=== PATIENT | male | born 1970 | race Caucasian/White ===

== ENCOUNTER → 2018-04-07 | Outpatient (CLI) | payer BC ==
--- NOTE | 2018-04-07 09:35 | US ---
EXAMINATION TYPE: US abdomen complete DATE OF EXAM: 04/07/2018 COMPARISON: NONE CLINICAL HISTORY: 47-year-old male R10.11 right upper quadrant pain. Pain for 1 month TECHNIQUE: Multiple sonographic images of the abdomen are obtained. FINDINGS: EXAM MEASUREMENTS: Liver Length: 18.7 cm Gallbladder Wall: 0.2 cm CBD: 0.5 cm Spleen: 12.1 cm Right Kidney: 12.1 x 5.0 x 5.1 cm Left Kidney: 12.2 x 5.3 x 5.5 cm Pancreas: overlying bowel gas, not seen Liver: Limited intercostal imaging due to bowel gas . Slight increased echogenicity. No focal lesion seen. Gallbladder: Upper limits of normal in size likely due to fasting state. Evidence for sonographic Rojas's sign: no CBD: wnl Spleen: wnl Right Kidney: wnl Left Kidney: wnl Upper IVC: wnl Abd Aorta: very limited views due to bowel gas IMPRESSION: 1. Mild hepatomegaly (18.7 cm) with slight increased echogenicity. Correlate for hepatic steatosis. 2. Gallbladder is borderline hydropic likely due to fasting state. Sonographic Rojas sign is negativ e and there are no ancillary findings of acute cholecystitis. 3. No biliary ductal dilatation.
== END | disposition home or self-care (01) ==
LOC: RADUSWWP 06:46
PROVIDERS: ATTEND Internal Medicine
DX: R16.0 Hepatomegaly, not elsewhere classified (principal); R10.11 Right upper quadrant pain
CPT/HCPCS: 76700

== ENCOUNTER 2020-12-08 05:13 | Observation (INO) | payer BC ==
--- NOTE | 2020-12-08 05:49 | XR ---
EXAMINATION TYPE: XR chest 2V DATE OF EXAM: 12/08/2020 COMPARISON: NONE HISTORY: Chest pain TECHNIQUE: FINDINGS: Heart and mediastinum are normal. Lungs are clear. Diaphragm is normal. Bony thorax is inta ct. IMPRESSION: Normal chest.
[2020-12-08 06:03] LABS: Basophils # (A) 0.1 k/uL (0-0.2); Basophils % (A) 1 %; Eosinophils # (A) 0.2 k/uL (0-0.7); Eosinophils % (A) 3 %; HCT 45.6 % (39.0-53.0); HGB 15.5 gm/dL (13.0-17.5); Lymphocytes # (A) 2.4 k/uL (1.0-4.8); Lymphocytes % (A) 31 %; MCH 27.6 pg (25.0-35.0); MCHC 33.9 g/dL (31.0-37.0); MCV 81.5 fL (80.0-100.0); Mean Platelet Volume 8.3; Monocytes # (A) 0.5 k/uL (0-1.0); Monocytes % (A) 7 %; Neutrophils # (A) 4.4 k/uL (1.3-7.7); Neutrophils % (A) 56 %; Platelet Count 289 k/uL (150-450); RDW 12.9 % (11.5-15.5); WBC 7.9 k/uL (3.8-10.6)
[2020-12-08] MEDS ORDERED: ASPIRIN 81 MG PO STA (06:23)
--- NOTE | 2020-12-08 06:25 | ED ---
Chest Pain HPI - General Chief Complaint: Chest Pain Stated Complaint: Chest Pains Time Seen by Provider: 12/08/20 06:03 Source: patient, EMS, RN notes reviewed Mode of arrival: EMS Limitations: no limitations - History of Present Illness Initial Comments: This a 50-year-old male presents emergency Department with chief complaint of chest pain. Patient states that he woke up around 3:30 this morning. Patient states never experienced something like this in the Past. He has minimal shortness of breath no fever cough congestion. Patient states he is known diabetic no prior cardiac disease. Denies hypertension hyperlipidemia. She states pain has subsided some but still present. No abdominal pain. - Related Data Allergies Allergy/AdvReac Type Severity Reaction Status Date / Time tramadol [From [facility]] Allergy Anaphylaxis Verified 12/08/20 05:36 Review of Systems ROS Statement: Those systems with pertinent positive or pertinent negative responses have been documented in the HPI. ROS Other: All systems not noted in ROS Statement are negative. EKG Findings - EKG Comments: EKG Findings:: EKG performed at 5.4 normal sinus rhythm rate of 81 MT interval 152 QRS 86 QT/QTC 348/404 Past Medical History Past Medical History: Diabetes Mellitus History of Any Multi-Drug Resistant Organisms: None Reported Past Surgical History: No Surgical Hx Reported Past Psychological History: No Psychological Hx Reported Smoking Status: Former smoker Past Alcohol Use History: Occasional Past Drug Use History: None Reported General Exam Limitations: no limitations General appearance: alert, in no apparent distress Head exam: Present: atraumatic, normocephalic, normal inspection Eye exam: Present: normal appearance, PERRL, EOMI. Absent: scleral icterus, conjunctival injection, periorbital swelling ENT exam: Present: normal exam, normal oropharynx, mucous membranes moist Neck exam: Present: normal inspection, full ROM. Absent: tenderness, meningismus, lymphadenopathy Respiratory exam: Present: normal lung sounds bilaterally, chest wall tenderness. Absent: respiratory distress, wheezes, rales, rhonchi, stridor Cardiovascular Exam: Present: regular rate, normal rhythm, normal heart sounds. Absent: systolic murmur, diastolic murmur, rubs, gallop, clicks GI/Abdominal exam: Present: soft, normal bowel sounds. Absent: distended, te nderness, guarding, rebound, rigid Course Vital Signs 12/08/20 12/08/20 12/08/20 05:17 06:02 07:39 Temperature 97.9 F Pulse Rate 88 76 78 Respiratory 17 20 18 Rate Blood Pressure 150/95 112/72 111/82 O2 Sat by Pulse 98 98 98 Oximetry Chest Pain MDM - MDM Initial workup is negative including negative troponin, EKG does not show any acute changes. Patient does have multiple risk factors including admitted for cardiac rule out repeat troponins, started on heparin. Disposition Clinical Impression: Chest pain Disposition: ADMITTED IP TO THIS HOSP Condition: Fair Referrals: Marco Antonio Pete MD [Primary Care Provider] - 1-2 days
[2020-12-08 06:41] LABS: Partial Thromboplastin Time 25.7 sec (22.0-30.0); Prothrombin Time 10.6 sec (9.0-12.0)
[2020-12-08 06:44] LABS: ALT 23 U/L (4-49); AST 30 U/L (17-59); African American GFR (CKD) >90 (>60 ml/min/1.73 sqM); Albumin 4.6 g/dL (3.5-5.0); Alkaline Phosphatase 79 U/L (38-126); Anion Gap 10 mmol/L; Blood Urea Nitrogen 16 mg/dL (9-20); Calcium 10.2 mg/dL (8.4-10.2); Carbon Dioxide 24 mmol/L (22-30); Chloride 102 mmol/L (98-107); Glucose 274 mg/dL (74-99); Magnesium 1.7 mg/dL (1.6-2.3); Non-African American GFR(CKD) >90 (>60 ml/min/1.73 sqM); Potassium 4.7 mmol/L (3.5-5.1); Sodium 136 mmol/L (137-145); Total Bilirubin 0.6 mg/dL (0.2-1.3); Total Protein 7.7 g/dL (6.3-8.2)
[2020-12-08 07:40] VITALS: RESP 18
[2020-12-08] MEDS ORDERED: NITROGLYCERIN SL TABS 0.4 MG TAB SUBLINGUAL PRN (08:02)
[2020-12-08] MEDS ORDERED: HEPARIN SODIUM 1,000 UN/ML (10ML VL) IV ONE (08:02)
[2020-12-08] MEDS ORDERED: HEPARIN SOD,PORK IN 0.45% NACL 25,000 UNIT in 0.45% NACL 1 250ML.BAG IV SCH (08:15)
[2020-12-08] MEDS ORDERED: ASPIRIN 81 MG PO SCH (09:45)
--- NOTE | 2020-12-08 10:35 | P.CRDCN ---
History of Present Illness History of present illness: HISTORY OF PRESENTING ILLNESS This is a pleasant 50-year-old male past medical history significant for type 2 diabetes. He does not follow with a hospital product specialist. He follows with his primary care physician Dr. Pete. We have been asked to see in consultation for chest pain. Patient is seen and examined in the emergency department. 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 Patient's chest pain started at 3 AM. He states it started in the center of his chest and radiates to his back. He describes it as a sharp pain at first and then his chest began to feel "heavy". He had some associated shortness of breath. He denies any associated nausea, vomiting, diaphoresis. He denies any fever, chills, lightheadedness, dizziness, presyncope or syncope. He denies symptoms of orthopnea or PND. His chest pain has resolved. He did not take anything for the pain. He denies history of [place], stroke, hypertension, dyslipidemia. He denies any history of coronary artery disease. He denies any family history of CAD. He is a former smoker. He does drink alcohol occasionally not daily use. DIAGNOSTICS EKG reveals sinus rhythm, heart rate 81, T wave flattening in lead aVL, no significant STT wave abnormalities. No prior EKGs to compare. Chest xray normal chest, no acute cardiopulmonary process. Laboratory reviewed, CBC unremarkable, troponin negative 2, sodium 136, potassium 4.7, BUN 16, serum creatinine 0.7, magnesium 1.7, COVID-19 PCR negative Home medications include Lyrica 50 mg twice a day, lisinopril 2.5 mg daily, Januvia 100 mg daily REVIEW OF SYSTEMS At the time of my exam: CONSTITUTIONAL: Denies fever or chills. CARDIOVASCULAR: positive chest pain, positive shortness of breath Denies orthopnea, PND or palpitations. RESPIRATORY: Denies cough. GASTROINTESTINAL: Denies abdominal pain, diarrhea, constipation, nausea or vomiting. MUSCULOSKELETAL: Denies myalgias. NEUROLOGIC: Denies numbness, tingling, headacbe or weakness. ENDOCRINE: Denies fatigue, weight change, polydipsia or polyurina. GENITOURINARY: Denies burning, hematuria or urgency with micturation. HEMATOLOGIC: Denies history of anemia or bleeding. PHYSICAL EXAMINATION Blood pressure 119/80, heart rate 74, afebrile, maintaining oxygen saturations on room air CONSTITUTIONAL: No apparent distress. HEENT: Head is normocephalic. Pupils are equal, round. Sclerae anicteric. Mucous membranes of the mouth are moist. No JVD. No carotid bruit. CHEST EXAMINATION: Lungs are clear to auscultation. No chest wall tenderness is noted on palpation or with deep breathing. HEART EXAMINATION: Regular rate and rhythm. S1, S2 heard. No murmurs, gallops or rub. ABDOMEN: Soft, nontender. Positive bowel sounds. EXTREMITIES: 2+ peripheral pulses, no lower extremity edema and no calf tenderness. SKIN: warm, dry NEUROLOGIC EXAMINATION: Patient is awake, alert and oriented x3. ASSESSMENT Chest pain atypical, acute coronary syndrome has been ruled out with no ischemia noted on EKG and negative cardiac enzymes Type 2 Diabetes PLAN An acute coronary event has been ruled out with no EKG evidence of ischemia and negative cardiac enzymes. Obtain 2D echocardiogram and doppler study to assess cardiac structure and function. Perform stress echo test to assess for stress induced cardiac ischemia. If abno rmal will consider coronary angiography. If echo with no acute findings, and stress test is normal ok to discharge from cardiology perspective and patient can follow up with his primary care physician as an oupatient . Thank you kindly for this consultation. Nurse Practitioner note has been reviewed, I agree with a documented findings and plan of care. Patient was seen and examined. Past Medical History Past Medical History: Diabetes Mellitus History of Any Multi-Drug Resistant Organisms: None Reported Past Surgical History: No Surgical Hx Reported Past Psychological History: No Psychological Hx Reported Smoking Status: Former smoker Past Alcohol Use History: Occasional Past Drug Use History: None Reported Medications and Allergies Home Medications Medication Instructions Recorded Confirmed Type Pregabalin [Lyrica] 50 mg PO BID 12/08/20 12/08/20 History lisinopriL [Zestril] 2.5 mg PO DAILY 12/08/20 12/08/20 History sitaGLIPtin [Januvia] 100 mg PO DAILY 12/08/20 12/08/20 History Allergies Allergy/AdvReac Type Severity Reaction Status Date / Time tramadol [From Ultram] Allergy Anaphylaxis Verified 12/08/20 09:26 Physical Exam Vitals: Vital Signs Temp Pulse Resp BP Pulse Ox 12/08/20 09:04 74 18 119/80 98 12/08/20 07:39 78 18 111/82 98 12/08/20 06:02 76 20 112/72 98 12/08/20 05:17 97.9 F 88 17 150/95 98 Intake and Output 12/07/20 12/08/20 12/08/20 22:59 06:59 14:59 Other: Weight 81.193 kg Results 12/08/20 05:38 12/08/20 05:38 Cardiac Enzymes 12/08/20 12/08/20 12/08/20 Range/Units 05:38 05:38 08:16 AST 30 (17-59) U/L Troponin I <0.012 <0.012 (0.000-0.034) ng/mL Coagulation 12/08/20 Range/Units 05:38 PT 10.6 (9.0-12.0) sec APTT 25.7 (22.0-30.0) sec CBC 12/08/20 Range/Units 05:38 WBC 7.9 (3.8-10.6) k/uL RBC 5.60 (4.30-5.90) m/uL Hgb 15.5 (13.0-17.5) gm/dL Hct 45.6 (39.0-53.0) % Plt Count 289 (150-450) k/uL Comprehensive Metabolic Panel 12/08/20 Range/Units 05:38 Sodium 136 L (137-145) mmol/L Potassium 4.7 (3.5-5.1) mmol/L Chloride 102 (98-107) mmol/L Carbon Dioxide 24 (22-30) mmol/L BUN 16 (9-20) mg/dL Creatinine 0.73 (0.66-1.25) mg/dL Glucose 274 H (74-99) mg/dL Calcium 10.2 (8.4-10.2) mg/dL AST 30 (17-59) U/L ALT 23 (4-49) U/L Alkaline Phosphatase 79 (38-126) U/L Total Protein 7.7 (6.3-8.2) g/dL Albumin 4.6 (3.5-5.0) g/dL Current Medications Generic Name Dose Route Start Last Admin Trade Name Freq PRN Reason Stop Dose Admin Aspirin 81 mg 12/09/20 09:00 Aspirin 81 Mg PO DAILY MARINA Lisinopril 2.5 mg 12/08/20 09:45 Lisinopril 2.5 Mg Tab PO DAILY MARINA Nitroglycerin 0.4 mg 12/08/20 08:02 Nitroglycerin Sl Tabs 0.4 Mg Tab SUBLINGUAL Q5M PRN Chest Pain Intake and Output 12/07/20 12/08/20 12/08/20 22:59 06:59 14:59 Other: Weight 81.193 kg 12/08/20 05:38 12/08/20 05:38
--- NOTE | 2020-12-08 12:00 | ECHOF ---
Referral Reason:chest pain MEASUREMENTS -------- HEIGHT: 177.8 cm WEIGHT: 81.2 kg BP: RVIDd: 3.2 cm (< 3.3) IVSd: 1.4 cm (0.6 - 1.1) LVIDd: 3.0 cm (3.9 - 5.3) LVPWd: 1.4 cm (0.6 - 1.1) IVSs: 1.5 cm LVIDs: 2.0 cm LVPWs: 1.5 cm LAESV Index (A-L): 15.53 ml/m Ao Diam: 2.4 cm (2.0 - 3.7) AV Cusp: 1.9 cm (1.5 - 2.6) MV E Clint: 0.60 m/s MV DecT: 219 ms MV A Clint: 0.58 m/s MV E/A Ratio: 1.04 RAP: 5.00 mmHg RVSP: 18.29 mmHg FINDINGS -------- Sinus rhythm. This was a technically adequate study. The left ventricular size is normal. There is moderate concentric left ventricular hypertrophy. O verall left ventricular systolic function is normal with, an EF between 55 - 60 %. The diastolic fi lling pattern is normal for the age of the patient 10.13. The right ventricle is normal in size. Normal LA size by volume 22+/-6 ml/m2. The right atrial size is normal. Interatrial and interventricular septum intact. There is no evidence of aortic regurgitation. There is no evidence of aortic stenosis. No mitral regurgitation. Mild tricuspid regurgitation present. There is no evidence of pulmonary hypertension. The right v entricular systolic pressure, as measured by Doppler, is 18.29mmHg. There is no pulmonic regurgitation present. The aortic root size is normal. IVC Not well visulized. There is no pericardial effusion. CONCLUSIONS -------- 1. The left ventricular size is normal. 2. There is moderate concentric left ventricular hypertrophy. 3. Overall left ventricular systolic function is normal with, an EF between 55 - 60 %. 4. The diastolic filling pattern is normal for the age of the patient 10.13 5. Mild tricuspid regurgitation present. UPHOLSTERER INSIDE: Bing Tran [facility]
[2020-12-08 14:32] VITALS: BP 119/80; PULSE 82; TEMP 98.1
--- NOTE | 2020-12-08 15:29 | ECHOS ---
STRESS ECHOCARDIOGRAM INDICATIONS: Chest pain BASELINE HEART RATE: 90 BASELINE BLOOD PRESSURE: 145/96 MAXIMUM HEART RATE: 146 MAXIMUM BLOOD PRESSURE: 195/89 85% MPHR: 146 100% MPHR: 145 METS: 170 MAXIMUM STAGE REACHED: 3 TOTAL EXERCISE TIME: 9:00 CLINICAL INFORMATION: Baseline EKG revealed normal sinus rhythm without significant without significant ST-T changes. Patient walked for 9 minutes on standard Kris protocol, achieved a maximal heart rate of 146 beats per minute, which is 86% of predicted maximum. He developed fatigue and shortness of breath. He had some chest tightness which was atypical. EKG did not reveal any ST-segment changes to indicate ischemia. By EKG criteria, this is a negative stress test with fair exercise capacity. Baseline echo images revealed normal wall motion and wall thickening of all segments. Echo contrast was administered to enhance the quality of images. At peak exercise there was good augmentation of left ventricular wall motion and wall thickening of all segments, suggesting that there is no evidence of any stress-induced ischemia on this study. FINAL IMPRESSION: 1. Fair exercise capacity with a negative stress test by EKG criteria. 2. Normal stress echocardiogram without evidence of ischemia. MMODL / IJN: [id number] /
[2020-12-09] MEDS ORDERED: ASPIRIN 325 MG TAB PO SCH (09:00)
[2020-12-09] MEDS ORDERED: ASPIRIN 81 MG PO SCH (09:00)
== END 2020-12-08 18:15 | disposition home or self-care (01) ==
LOC: EC 05:13 → 6NMEDSUR 08:45
PROVIDERS: ADMIT Internal Medicine; ATTEND Internal Medicine
DX: R07.89 Other chest pain (principal); R06.02 Shortness of breath; E11.9 Type 2 diabetes mellitus without complications; I07.1 Rheumatic tricuspid insufficiency; Z20.822 Contact with and (suspected) exposure to COVID-19; Z79.84 Long term (current) use of oral hypoglycemic drugs; Z79.899 Other long term (current) drug therapy; Z88.5 Allergy status to narcotic agent; Z87.891 Personal history of nicotine dependence
CPT/HCPCS: 96376; 96365; 96366; 99285; 36415; 93005; 93306; 93351; 80053; 83735; 84484; 85025; 85610; 85730; 87635; 71046; G0378; J1644 ×2; Q9950

== ENCOUNTER → 2021-02-10 | Outpatient (CLI) | payer BC ==
[2021-02-10 13:24] LABS: ALT 25 U/L (10-49); AST 17 U/L (14-35); African American GFR (CKD) 120.2 (60.0-200.0); Albumin 4.9 g/dL (3.8-4.9); Albumin/Globulin Ratio 2.02 (1.60-3.17); Alkaline Phosphatase 72 U/L (41-126); Bilirubin, Conjugated <0.20 mg/dL (0.20-0.40); Blood Urea Nitrogen 15.2 mg/dL (9.0-27.0); Carbon Dioxide 22.5 mmol/L (20.0-27.5); Chloride 101 mmol/L (96-109); Chol/HDL Ratio 6.68 Ratio; Globulin 2.4 g/dL (1.6-3.3); LDL Cholesterol,Calculated 126.8 mg/dL (0.0-131.0); Non-African American GFR(CKD) 103.7 (60.0-200.0); Potassium 5.1 mmol/L (3.5-5.5); Sodium 136 mmol/L (135-145); Total Protein 7.3 g/dL (6.2-8.2)
== END | disposition home or self-care (01) ==
LOC: LABWHC1 08:41
PROVIDERS: ATTEND Internal Medicine
DX: E11.9 Type 2 diabetes mellitus without complications (principal); E78.5 Hyperlipidemia, unspecified; I10 Essential (primary) hypertension
CPT/HCPCS: 36415; 80051; 80061; 80076; 82565; 83036; 84443; 84520

== ENCOUNTER 2021-07-03 01:35 | Emergency (ER) | payer BC ==
[2021-07-03 01:43] VITALS: BP 139/82; PULSE 81; RESP 16; TEMP 97.7
[2021-07-03] MEDS ORDERED: IBUPROFEN 600 MG STARTER PACK 4 TAB BTL PO STA (02:19)
[2021-07-03] MEDS ORDERED: PENICILLIN VK 500MG STARTER 4 TAB BTL PO STA (02:19)
[2021-07-03] MEDS ORDERED: ACETAMINOPHEN TAB 500 MG TAB PO STA (02:20)
--- NOTE | 2021-07-03 02:22 | ED ---
ENT HPI - General Chief complaint: Dental/Oral Stated complaint: Tooth pain Time Seen by Provider: 07/03/21 02:11 Source: patient, RN notes reviewed Mode of arrival: ambulatory - History of Present Illness Initial comments: This is a pleasant 50-year-old male who comes to the ER complaining of pain to his right lower molar area. States it started on Friday and getting worse. Describing aching pain which is exacerbated by palpation, chewing. Patient is a diabetic. Not on insulin. No immunosuppression otherwise. Patient denies fever or chills. No headache, no fever or chills, no changes in vision or hearing, no sore throat or difficulty with speech, no neck pain, no chest pain or shortness of breath, no abdominal pain, no nausea or vomiting, no changes in urination or bowel movements, no numbness or tingling, no extremity pain, no skin rashes or lesions. MD complaint: tooth pain - Related Data Home Medications Medication Instructions Recorded Confirmed Pregabalin [Lyrica] 50 mg PO BID 12/08/20 12/08/20 lisinopriL [Zestril] 2.5 mg PO DAILY 12/08/20 12/08/20 sitaGLIPtin [Januvia] 100 mg PO DAILY 12/08/20 12/08/20 Previous Rx's Medication Instructions Recorded Aspirin 81 mg PO DAILY tab 12/08/20 Acetaminophen [Tylenol] 500 mg PO Q4-6H PRN #24 tab 07/03/21 Ibuprofen [Motrin] 600 mg PO Q8HR PRN #30 tab 07/03/21 Penicillin V Potassium [Pen Vee K] 500 mg PO QID #36 tablet 07/03/21 Allergies Allergy/AdvReac Type Severity Reaction Status Date / Time tramadol [From Ultram] Allergy Anaphylaxis Verified 07/03/21 01:43 Review of Systems ROS Statement: Those systems with pertinent positive or pertinent negative responses have been documented in the HPI. ROS Other: All systems not noted in ROS Statement are negative. Past Medical History Past Medical History: Diabetes Mellitus History of Any Multi-Drug Resistant Organisms: None Reported Past Surgical History: No Surgical Hx Reported Additional Past Surgical History / Comment(s): right great and second toe surgery after injury 1990 Past Anesthesia/Blood Transfusion Reactions: No Reported Reaction Past Psychological History: No Psychological Hx Reported Smoking Status: Former smoker Past Alcohol Use History: Occasional Past Drug Use History: None Reported - Past Family History Mother Family Medical History: COPD Additional Family Medical History / Comment(s): age 86 Father Family Medical History: Congestive Heart Failure (CHF), Diabetes Mellitus, Myocardial Infarction (MT) Additional Family Medical History / Comment(s): General Exam General appearance: alert, in no apparent distress Head exam: Present: atraumatic, normocephalic, normal inspection Eye exam: Present: normal appearance, PERRL, EOMI. Absent: scleral icterus, conjunctival injection, periorbital swelling ENT exam: Present: normal exam, mucous membranes moist, TM's normal bilaterally. Absent: mucous membranes dry, normal external ear exam Expanded Ear exam: Present: normal external inspection Mouth exam: Present: normal external inspection. Absent: drooling, trismus, muffled voice, tongue normal, tongue elevation, laceration Teeth exam: Present: dental caries, dental tenderness # (#31), gingival en largement (Inflammation of the gingiva and periodontal area adjacent to tooth #31. No definitive abscess, mild erythema). Absent: normal inspection Throat exam: normal inspection. negative: tonsillar erythema, tonsillomegaly, tonsillar exudate, R peritonsillar mass, L peritonsillar mass Neck exam: Present: normal inspection, full ROM. Absent: tenderness, meningismus, lymphadenopathy Respiratory exam: Present: normal lung sounds bilaterally. Absent: respiratory distress, wheezes, rales, rhonchi, stridor Cardiovascular Exam: Present: regular rate, normal rhythm, normal heart sounds. Absent: systolic murmur, diastolic murmur, rubs, gallop, clicks GI/Abdominal exam: Present: soft, normal bowel sounds. Absent: distended, tenderness, guarding, rebound, rigid Extremities exam: Present: normal inspection, full ROM, normal capillary refill. Absent: tenderness, pedal edema, joint swelling, calf tenderness Back exam: Present: normal inspection Neurological exam: Present: alert, oriented X3, CN II-XII intact Psychiatric exam: Present: normal affect, normal mood Skin exam: Present: warm, dry, intact, normal color. Absent: rash Course Vital Signs 07/03/21 01:40 Temperature 97.7 F Pulse Rate 81 Respiratory 16 Rate Blood Pressure 139/82 O2 Sat by Pulse 100 Oximetry Medical Decision Making - Medical Decision Making We'll treat the patient with penicillin VK for early dental infection. Patient looks well otherwise. Nontoxic. Patient told to follow up with dentistry. He is to call in the morning for follow-up. Ibuprofen and acetaminophen for pain control. Patient agrees with this treatment plan. Patient was told to return to the ER for any signs or symptoms worsen. Told to return immediately if any other problems arise. All questions answered. Treatment plan discussed. Patient in agreement Every effort has been made to ensure accuracy of this dictation. However, due to the limitations of electronic medical records and dictation devices, errors in charting still occur. Supervising physicians Dr. Jones Disposition Clinical Impression: Dental infection Disposition: HOME SELF-CARE Condition: Good Instructions (If sedation given, give patient instructions): Dental Abscess (ED), Toothache (ED) Additional Instructions: Taking antibiotics as directed. Call at 9 AM to schedule an appointment with the dentist as discussed. Return to the ER immediately if any symptoms worsen, new symptoms arise, or any other problems develop. Prescriptions: Ibuprofen [Motrin] 600 mg PO Q8HR PRN #30 tab PRN Reason: Pain Penicillin V Potassium [Pen Vee K] 500 mg PO QID #36 tablet Acetaminophen [Tylenol] 500 mg PO Q4-6H PRN #24 tab PRN Reason: Pain Is patient prescribed a controlled substance at d/c from ED?: No Referrals: Patricia Thompson DDS [STAFF PHYSICIAN] - 1-2 days Time of Disposition: 02:21
== END 2021-07-03 02:42 | disposition home or self-care (01) ==
LOC: EC 01:35
DX: K04.7 Periapical abscess without sinus (principal); E11.9 Type 2 diabetes mellitus without complications; Z79.84 Long term (current) use of oral hypoglycemic drugs; Z87.891 Personal history of nicotine dependence; Z88.5 Allergy status to narcotic agent; Z88.8 Allergy status to other drugs, medicaments and biological substances
CPT/HCPCS: 99282

== ENCOUNTER 2021-08-30 13:39 | Observation (INO) | payer BC ==
[2021-08-30] MEDS ORDERED: SODIUM CHLORIDE 0.9% 1,000 ML IV STA (13:50)
[2021-08-30] MEDS ORDERED: HYDROmorphone 0.5 MG/0.5 ML SYRINGE IVP STA ×3 (13:51→15:19)
--- NOTE | 2021-08-30 13:53 | ED ---
General Adult HPI - General Chief complaint: Abdominal Pain Stated complaint: Abd pain Time Seen by Provider: 08/30/21 13:40 Source: patient, RN notes reviewed, old records reviewed Mode of arrival: ambulatory Limitations: no limitations - History of Present Illness Initial comments: This is a 50-year-old male who presents emergency Department stating this morning he woke up with right lower quadrant abdominal pain and has been aggressively got worse throughout the day. Patient states he went and saw his primary medical care doctor and he centimeters emergency department to rule out appendicitis. Patient states she's had a normal bowel movement today. Patient denies any nausea or vomiting. Patient denies any fever chills. Patient states the pain is significant when he touches it or when he hit bumps in the road on the drive here. Patient states even moving his foot off the gas pedal causing quite a bit of right lower quadrant abdominal pain. Patient denies any injury or trauma. Patient denies any back pain. Patient denies any dysuria hematuria urinary frequency. - Related Data Home Medications Medication Instructions Recorded Confirmed lisinopriL [Zestril] 2.5 mg PO DAILY 12/08/20 08/30/21 Atorvastatin [Lipitor] 10 mg PO DAILY 08/30/21 08/30/21 Baclofen [Lioresal] 10 mg PO HS PRN 08/30/21 08/30/21 Empagliflozin/Linagliptin 1 tab PO DAILY 08/30/21 08/30/21 [Glyxambi 25 mg-5 mg Tablet] Glimepiride [Amaryl] 2 mg PO BID 08/30/21 08/30/21 Meloxicam [Mobic] 7.5 mg PO BID 08/30/21 08/30/21 Nortriptyline [Pamelor] 25 mg PO HS 08/30/21 08/30/21 Previous Rx's Medication Instructions Recorded oxyCODONE HCL [OxyIR] 5 mg PO Q6H PRN 3 Days #6 tab 09/01/21 Allergies Allergy/AdvReac Type Severity Reaction Status Date / Time tramadol [From Ultram] Allergy Anaphylaxis Verified 08/30/21 15:30 Review of Systems ROS Statement: Those systems with pertinent positive or pertinent negative responses have been documented in the HPI. ROS Other: All systems not noted in ROS Statement are negative. Past Medical History Past Medical History: Diabetes Mellitus History of Any Multi-Drug Resistant Organisms: None Reported Past Surgical History: No Surgical Hx Reported Additional Past Surgical History / Comment(s): right great and second toe surgery after injury 1990 Past Anesthesia/Blood Transfusion Reactions: No Reported Reaction Past Psychological History: No Psychological Hx Reported Smoking Status: Former smoker Past Alcohol Use History: Occasional Past Drug Use History: None Reported - Past Family History Mother Family Medical History: COPD Additional Family Medical History / Comment(s): age 86 Father Family Medical History: Congestive Heart Failure (CHF), Diabetes Mellitus, Myocardial Infarction ([place]) Additional Family Medical History / Comment(s): General Exam - General Exam Comments Initial Comments: GENERAL: Patient is well-developed and well-nourished. Patient is nontoxic and well- hydrated and is in moderate distress. ENT: Neck is soft and supple. No significant lymphadenopathy is noted. Oropharynx is clear. Moist mucous membranes. Neck has full range of motion without eliciting any pain. EYES: The sclera were anicteric and conjunctiva were pink and moist. Extraocular movements were intact and pupils were equal round and reactive to light. Eye lids were unremarkable. PULMONARY: Unlabored respirations. Good breath sounds bilaterally. No audible rales rhonchi or wheezing was noted. CARDIOVASCULAR: There is a regular rate and rhythm without any murmurs gallops or rubs. ABDOMEN: Patient has rebound tenderness right lower quadrant. SKIN: Skin is clear with no lesions or rashes and otherwise unremarkable. NEUROLOGIC: Patient is alert and oriented x3. Cranial nerves II through XII are grossly intact. Motor and sensory are also intact. Normal speech, volume and content. Symmetrical smile. MUSCULOSKELETAL: Normal extremities with adequate strength and full range of motion. LYMPHATICS: No significant lymphadenopathy is noted PSYCHIATRIC: Normal psychiatric evaluation. Limitations: no limitations Course Vital Signs 08/30/21 08/30/21 08/30/21 13:39 15:00 15:30 Temperature 98.4 F Pulse Rate 52 L 96 Respiratory 18 22 Rate Blood Pressure 126/75 123/85 121/82 O2 Sat by Pulse 96 Oximetry 08/30/21 08/30/21 15:40 16:40 Temperature Pulse Rate 92 Respiratory 18 Rate Blood Pressure 121/82 123/59 O2 Sat by Pulse 96 Oximetry Medical Decision Making - Medical Decision Making CT showed acute appendicitis - Lab Data Result diagrams: 08/31/21 08:46 08/30/21 14:22 Lab Results 08/30/21 08/30/21 08/30/21 Range/Units 14:22 14:22 14:22 WBC 14.5 H (3.8-10.6) k/uL RBC 5.51 (4.30-5.90) m/uL Hgb 15.4 (13.0-17.5) gm/dL Hct 44.9 (39.0-53.0) % MCV 81.5 (80.0-100.0) fL MCH 28.0 (25.0-35.0) pg MCHC 34.3 (31.0-37.0) g/dL RDW 12.8 (11.5-15.5) % Plt Count 273 (150-450) k/uL MPV 8.3 Neutrophils % 81 % Lymphocytes % 11 % Monocytes % 5 % Eosinophils % 1 % Basophils % 1 % Neutrophils # 11.8 H (1.3-7.7) k/uL Lymphocytes # 1.6 (1.0-4.8) k/uL Monocytes # 0.7 (0-1.0) k/uL Eosinophils # 0.2 (0-0.7) k/uL Basophils # 0.1 (0-0.2) k/uL Sodium 138 (137-145) mmol/L Potassium 4.0 (3.5-5.1) mmol/L Chloride 105 (98-107) mmol/L Carbon Dioxide 23 (22-30) mmol/L Anion Gap 10 mmol/L BUN 17 (9-20) mg/dL Creatinine 0.76 (0.66-1.25) mg/dL Est GFR (CKD-EPI)AfAm >90 (>60 ml/min/1.73 sqM) Est GFR (CKD-EPI)NonAf >90 (>60 ml/min/1.73 sqM) Glucose 147 H (74-99) mg/dL Plasma Lactic Acid Eddie (0.7-2.0) mmol/L Calcium 9.4 (8.4-10.2) mg/dL Total Bilirubin 0.5 (0.2-1.3) mg/dL AST 21 (17-59) U/L ALT 23 (4-49) U/L Alkaline Phosphatase 83 (38-126) U/L Total Protein 7.6 (6.3-8.2) g/dL Albumin 4.9 (3.5-5.0) g/dL Amylase 48 (30-110) U/L Lipase 97 (23-300) U/L Urine Color Light Yellow Urine Appearance Clear (Clear) Urine pH 5.0 (5.0-8.0) Ur Specific [place] 1.037 H (1.001-1.035) Urine Protein Negative (Negative) Urine Glucose (UA) 4+ H (Negative) Urine Ketones 1+ H (Negative) Urine Blood Negative (Negative) Urine Nitrite Negative (Negative) Urine Bilirubin Negative (Negative) Urine Urobilinogen <2.0 (<2.0) mg/dL Ur Leukocyte Esterase Negative (Negative) 08/30/21 Range/Units 14:22 WBC (3.8-10.6) k/uL RBC (4.30-5.90) m/uL Hgb (13.0-17.5) gm/dL Hct (39.0-53.0) % MCV (80.0-100.0) fL MCH (25.0-35.0) pg MCHC (31.0-37.0) g/dL RDW (11.5-15.5) % Plt Count (150-450) k/uL MPV Neutrophils % % Lymphocytes % % Monocytes % % Eosinophils % % Basophils % % Neutrophils # (1.3-7.7) k/uL Lymphocytes # (1.0-4.8) k/uL Monocytes # (0-1.0) k/uL Eosinophils # (0-0.7) k/uL Basophils # (0-0.2) k/uL Sodium (137-145) mmol/L Potassium (3.5-5.1) mmol/L Chloride (98-107) mmol/L Carbon Dioxide (22-30) mmol/L Anion Gap mmol/L BUN (9-20) mg/dL Creatinine (0.66-1.25) mg/dL Est GFR (CKD-EPI)AfAm (>60 ml/min/1.73 sqM) Est GFR (CKD-EPI)NonAf (>60 ml/min/1.73 sqM) Glucose (74-99) mg/dL Plasma Lactic Acid Eddie 1.4 (0.7-2.0) mmol/L Calcium (8.4-10.2) mg/dL Total Bilirubin (0.2-1.3) mg/dL AST (17-59) U/L ALT (4-49) U/L Alkaline Phosphatase (38-126) U/L Total Protein (6.3-8.2) g/dL Albumin (3.5-5.0) g/dL Amylase (30-110) U/L Lipase (23-300) U/L Urine Color Urine Appearance (Clear) Urine pH (5.0-8.0) Ur Specific [place] (1.001-1.035) Urine Protein (Negative) Urine Glucose (UA) (Negative) Urine Ketones (Negative) Urine Blood (Negative) Urine Nitrite (Negative) Urine Bilirubin (Negative) Urine Urobilinogen (<2.0) mg/dL Ur Leukocyte Esterase (Negative) Disposition Clinical Impression: Acute appendicitis Disposition: ADMITTED IP TO THIS [facility] Time of Disposition: 21:20
[2021-08-30 14:34] LABS: Basophils # (A) 0.1 k/uL (0-0.2); Basophils % (A) 1 %; Eosinophils # (A) 0.2 k/uL (0-0.7); Eosinophils % (A) 1 %; HCT 44.9 % (39.0-53.0); HGB 15.4 gm/dL (13.0-17.5); Lymphocytes # (A) 1.6 k/uL (1.0-4.8); Lymphocytes % (A) 11 %; MCHC 34.3 g/dL (31.0-37.0); MCV 81.5 fL (80.0-100.0); Mean Platelet Volume 8.3; Monocytes # (A) 0.7 k/uL (0-1.0); Monocytes % (A) 5 %; Neutrophils # (A) 11.8 k/uL (1.3-7.7); Neutrophils % (A) 81 %; Platelet Count 273 k/uL (150-450); RBC 5.51 m/uL (4.30-5.90); RDW 12.8 % (11.5-15.5); WBC 14.5 k/uL (3.8-10.6)
[2021-08-30 14:37] LABS: Appearance,Urine Clear (Clear); Bilirubin,Urine Negative (Negative); Blood,Urine Negative (Negative); Color,Urine Light Yellow; Glucose,Urine (UA) 4+ (Negative); Ketones,Urine 1+ (Negative); Leukocyte Esterase,Urine Negative (Negative); Nitrite,Urine Negative (Negative); Protein,Urine Negative (Negative); Specific Gravity,Urine 1.037 (1.001-1.035); Urobilinogen,Urine <2.0 mg/dL (<2.0)
[2021-08-30 14:48] LABS: ALT 23 U/L (4-49); AST 21 U/L (17-59); African American GFR (CKD) >90 (>60 ml/min/1.73 sqM); Albumin 4.9 g/dL (3.5-5.0); Alkaline Phosphatase 83 U/L (38-126); Amylase 48 U/L (30-110); Anion Gap 10 mmol/L; Blood Urea Nitrogen 17 mg/dL (9-20); Calcium 9.4 mg/dL (8.4-10.2); Carbon Dioxide 23 mmol/L (22-30); Chloride 105 mmol/L (98-107); Glucose 147 mg/dL (74-99); Lipase 97 U/L (23-300); Non-African American GFR(CKD) >90 (>60 ml/min/1.73 sqM); Sodium 138 mmol/L (137-145); Total Bilirubin 0.5 mg/dL (0.2-1.3); Total Protein 7.6 g/dL (6.3-8.2)
[2021-08-30] MEDS ORDERED: PIPERACILLIN-TAZOBACTAM 3.375 GM in SODIUM CHLORIDE 0.9% 100 ML IVPB STA (15:19)
[2021-08-30] MEDS ORDERED: SODIUM CHLORIDE 0.9% 1,000 ML IV ONE (15:23)
--- NOTE | 2021-08-30 15:26 | CT ---
EXAMINATION TYPE: CT abdomen pelvis w con DATE OF EXAM: 08/30/2021 COMPARISON: None INDICATION: RLQ pain DLP: 1065.3 mGycm, Automated exposure control for dose reduction was used. CONTRAST: 82cc mL of Isovue 300. Study performed without Oral Contrast TECHNIQUE: Axial images were obtained from above the diaphragm to the pubic rami in the axial plane a t 5 mm thick sections. Reconstructed images are reviewed on the computer in the coronal plane. FINDINGS: Limited CT sections are obtained the lung bases. The lung bases are clear. CT ABDOMEN: Liver: Normal Spleen: Normal Pancreas: Normal Adrenal glands: The adrenal glands are normal. Gallbladder: Normal Kidneys: No masses are evident. No hydronephrosis is present. No cysts are present. No renal stone s are evident Aorta: Vascular calcification is within the aorta. Inferior vena cava: Normal. CT PELVIS: Loops of bowel within the abdomen and pelvis are normal. Studies without oral contrast limiting b owel evaluation. Some mild fluid is within small bowel loops suggesting mild ileus. Appendix: The appendix is dilated and contains multiple calcifications or barium. Mild inflammatory c hanges adjacent. Some minimal fluid near the base of the appendix. Findings are suggestive for acute appendicitis. This extends to nearly the inguinal region. Urinary bladder: Normal. Genitourinary structures: Prostate appears normal Osseous structures: No suspicious lytic or sclerotic lesions. IMPRESSIONS: 1. Findings suggestive for acute appendicitis. Clinical correlation recommended.
--- NOTE | 2021-08-30 15:47 | P.GSHP ---
History of Present Illness H&P Date: 08/30/21 Chief Complaint: Acute appendicitis 50-year-old male comes in the ER complaining of right-sided abdominal pain. Mostly lower quadrants. Pain has gotten worse throughout the day. He was seen by his primary care physician and sent to the hospital. No fevers or chills. No nausea or vomiting. Movement of the right leg did cause pain. No trauma. White blood cell count is elevated. CAT scan was obtained showing appendicolith with appendiceal inflammation consistent with appendicitis. No history of similar events. - Review of Systems Comment: The patient denies any acute changes in vision or hearing, no dysphagia or odynophagia, no chest pain or shortness of breath, no dysuria or hematuria, no headache, no runny nose, no rectal bleeding or melena, no unexplained weight loss Past Medical History Past Medical History: Diabetes Mellitus History of Any Multi-Drug Resistant Organisms: None Reported Past Surgical History: No Surgical Hx Reported Additional Past Surgical History / Comment(s): right great and second toe surgery after injury 1990 Past Anesthesia/Blood Transfusion Reactions: No Reported Reaction Past Psychological History: No Psychological Hx Reported Smoking Status: Former smoker Past Alcohol Use History: Occasional Past Drug Use History: None Reported - Past Family History Mother Family Medical History: COPD Additional Family Medical History / Comment(s): age 86 Father Family Medical History: Congestive Heart Failure (CHF), Diabetes Mellitus, Myocardial Infarction ([place]) Additional Family Medical History / Comment(s): Medications and Allergies Home Medications Medication Instructions Recorded Confirmed Type lisinopriL [Zestril] 2.5 mg PO DAILY 12/08/20 08/30/21 History Atorvastatin [Lipitor] 10 mg PO DAILY 08/30/21 08/30/21 History Baclofen [Lioresal] 10 mg PO HS PRN 08/30/21 08/30/21 History Empagliflozin/Linagliptin 1 tab PO DAILY 08/30/21 08/30/21 History [Glyxambi 25 mg-5 mg Tablet] Glimepiride [Amaryl] 2 mg PO BID 08/30/21 08/30/21 History Meloxicam [Mobic] 7.5 mg PO BID 08/30/21 08/30/21 History Nortriptyline [Pamelor] 25 mg PO HS 08/30/21 08/30/21 History Allergies Allergy/AdvReac Type Severity Reaction Status Date / Time tramadol [From Ultram] Allergy Anaphylaxis Verified 08/30/21 15:30 Surgical - Exam Vital Signs Temp Pulse Resp BP Pulse Ox 98.4 F 52 L 18 126/75 96 08/30/21 13:39 08/30/21 13:39 08/30/21 13:39 08/30/21 13:39 08/30/21 13:39 Physical exam: General: Well-developed, well-nourished HEENT: Normocephalic, sclerae nonicteric Abdomen: Mildly distended, right lower quadrant tenderness present Extremities: No edema Neuro: Alert and oriented Results - Labs 08/30/21 14:22 08/30/21 14:22 Abnormal Lab Results - Last 24 Hours (Table) 08/30/21 08/30/21 08/30/21 Range/Units 14:22 14:22 14:22 WBC 14.5 H (3.8-10.6) k/uL Neutrophils # 11.8 H (1.3-7.7) k/uL Glucose 147 H (74-99) mg/dL Ur Specific [place] 1.037 H (1.001-1.035) Urine Glucose (UA) 4+ H (Negative) Urine Ketones 1+ H (Negative) Diabetes panel 08/30/21 Range/Units 14:22 Sodium 138 (137-145) mmol/L Potassium 4.0 (3.5-5.1) mmol/L Chloride 105 (98-107) mmol/L Carbon Dioxide 23 (22-30) mmol/L BUN 17 (9-20) mg/dL Creatinine 0.76 (0.66-1.25) mg/dL Glucose 147 H (74-99) mg/dL Calcium 9.4 (8.4-10.2) mg/dL AST 21 (17-59) U/L ALT 23 (4-49) U/L Alkaline Phosphatase 83 (38-126) U/L Total Protein 7.6 (6.3-8.2) g/dL Albumin 4.9 (3.5-5.0) g/dL Calcium panel 08/30/21 Range/Units 14:22 Calcium 9.4 (8.4-10.2) mg/dL Albumin 4.9 (3.5-5.0) g/dL Pituitary panel 08/30/21 Range/Units 14:22 Sodium 138 (137-145) mmol/L Potassium 4.0 (3.5-5.1) mmol/L Chloride 105 (98-107) mmol/L Carbon Dioxide 23 (22-30) mmol/L BUN 17 (9-20) mg/dL Creatinine 0.76 (0.66-1.25) mg/dL Glucose 147 H (74-99) mg/dL Calcium 9.4 (8.4-10.2) mg/dL Adrenal panel 08/30/21 Range/Units 14:22 Sodium 138 (137-145) mmol/L Potassium 4.0 (3.5-5.1) mmol/L Chloride 105 (98-107) mmol/L Carbon Dioxide 23 (22-30) mmol/L BUN 17 (9-20) mg/dL Creatinine 0.76 (0.66-1.25) mg/dL Glucose 147 H (74-99) mg/dL Calcium 9.4 (8.4-10.2) mg/dL Total Bilirubin 0.5 (0.2-1.3) mg/dL AST 21 (17-59) U/L ALT 23 (4-49) U/L Alkaline Phosphatase 83 (38-126) U/L Total Protein 7.6 (6.3-8.2) g/dL Albumin 4.9 (3.5-5.0) g/dL Assessment and Plan (1) Acute appendicitis Narrative/Plan: 50-year-old male with acute appendicitis. Will proceed with laparoscopic, possible open appendectomy at this time. Risks of bleeding, infection, scarring, leak, abscess, conversion to an open procedure, bladder bowel and ureteral injury reviewed. Patient understands and wishes to proceed. Initiate antibiotic therapy. Current Visit: Yes Status: Acute Code(s): K35.80 - UNSPECIFIED ACUTE APPENDICITIS SNOMED Code(s): 61874375
[2021-08-30] MEDS ORDERED: BUPIVACAINE (PF) 0.25% 30 ML VIAL SQ ONE ×3 (17:25→18:26)
[2021-08-30] MEDS ORDERED: IV FLUID CONTINUATION 1,000 ML IV ONE (17:39)
[2021-08-30] MEDS ORDERED: METOCLOPRAMIDE 5 MG/ML 2 ML VIAL IVP ONE (17:41)
[2021-08-30 17:47] LABS: Glucose,Whole Blood 81 mg/dL (70-110)
[2021-08-30] MEDS ORDERED: ONDANSETRON 4 MG/2 ML VIAL IVP ONE (17:47)
[2021-08-30] MEDS ORDERED: LIDOCAINE 1% (10MG/ML) FOR IV START INTRADERMA PRN (17:50)
[2021-08-30] MEDS ORDERED: HEPARIN SODIUM,PORCINE/PF 5,000 UNIT/0.5 ML SYRINGE SQ ONE (17:54)
[2021-08-30] MEDS ORDERED: ONDANSETRON 4 MG/2 ML VIAL ONE (17:54)
[2021-08-30] MEDS ORDERED: SODIUM CHLORIDE 4MEQ/ML 30 ML VIAL IV ONE (17:58)
[2021-08-30] MEDS ORDERED: LIDOCAINE 4% LTA KIT (4 ML) TOPICAL ONE (17:58)
[2021-08-30] MEDS ORDERED: fentaNYL (PF) 50 MCG/ML 2 ML AMP ONE (17:58)
[2021-08-30] MEDS ORDERED: PROPOFOL 10 MG/ML 20 ML VIAL IV ONE (17:58)
[2021-08-30] MEDS ORDERED: NEOSTIGMINE 1 MG/ML 10 ML VIAL ONE (17:58)
[2021-08-30] MEDS ORDERED: SUCCINYLCHOLINE CHLORIDE VIAL 200 MG/10 ML VIAL IV ONE (17:58)
[2021-08-30] MEDS ORDERED: MIDAZOLAM 2 MG/2 ML VIAL ONE (17:58)
[2021-08-30] MEDS ORDERED: LACTATED RINGERS 1,000 ML IV ONE ×2 (18:50→18:57)
[2021-08-30] MEDS ORDERED: ONDANSETRON 4 MG/2 ML VIAL IVP PRN (18:57)
[2021-08-30] MEDS ORDERED: ACETAMINOPHEN TAB 325 MG TAB PO PRN (18:57)
[2021-08-30] MEDS ORDERED: NALOXONE 0.4 MG/ML 1 ML VIAL IV PRN (18:57)
[2021-08-30] MEDS ORDERED: HYDROmorphone 1 MG/ML 1 ML SYRINGE IVP PRN (18:57)
--- NOTE | 2021-08-30 19:01 | P.OP ---
Date of Procedure: 08/30/21 Procedure(s) Performed: PREOPERATIVE DIAGNOSIS: Acute appendicitis POSTOPERATIVE DIAGNOSIS: Same PROCEDURE: Laparoscopic appendectomy SURGEON: Mando EBL: 10 mL ANESTHESIA: General COMPLICATIONS: None OPERATIVE PROCEDURE: The patient was brought and placed on the operating table in the supine position. The patient was placed under general anesthesia. The abdomen was prepped and draped in the usual sterile fashion. A small vertical infraumbilical incision was made. The fascia was retracted anteriorly with Brody forceps. The Veress needle was advanced into the peritoneal cavity. The saline drop test was normal. Insufflation took place to 15 mmHg. A 5 mm trocar was then placed. An additional 5 mm suprapubic trocar was placed under direct visualization as well as a 12 mm left lower quadrant trocar under direct visualization. The appendix was inspected. It was acutely inflamed. The mesoappendix was dissected. The base of the appendix was divided using a linear 45 mm intestinal stapler. The mesentery itself was divided using the LigaSure device. The area was then irrigated. No further purulence or bleeding was seen. The appendix was brought out of the peritoneal cavity through the left lower quadrant trocar site with an Endo Catch bag. The fascia at the 12 mm site was closed using a Renny-Giovanny 0 Vicryl stitch. The skin at all 3 sites was closed using 4-0 Monocryl sutures. Skin glue was then applied. DISPOSITION: Stable to recovery room
[2021-08-30] MEDS ORDERED: HYDROmorphone 0.5 MG/0.5 ML SYRINGE IVP ONE (19:21)
[2021-08-30] MEDS: LACTATED RINGERS 1,000 ML IV SCH (20:12)
[2021-08-30] MEDS: DOCUSATE 100 MG CAP PO SCH (20:19)
[2021-08-30] MEDS: HEPARIN SODIUM,PORCINE/PF 5,000 UNIT/0.5 ML SYRINGE SQ SCH (22:59)
[2021-08-30] MEDS: KETOROLAC 15 MG/ML 1 ML VIAL IVP SCH (22:59)
[2021-08-31] MEDS: KETOROLAC 15 MG/ML 1 ML VIAL IVP SCH ×4 (05:22→23:23)
[2021-08-31] MEDS ORDERED: HYDROmorphone 0.5 MG/0.5 ML SYRINGE IVP PRN (07:00)
[2021-08-31 09:03] LABS: Basophils % (A) 0 %; Eosinophils # (A) 0.1 k/uL (0-0.7); Eosinophils % (A) 1 %; HCT 41.8 % (39.0-53.0); HGB 14.4 gm/dL (13.0-17.5); Lymphocytes # (A) 1.4 k/uL (1.0-4.8); Lymphocytes % (A) 16 %; MCH 28.9 pg (25.0-35.0); MCHC 34.4 g/dL (31.0-37.0); Mean Platelet Volume 8.4; Monocytes # (A) 0.4 k/uL (0-1.0); Monocytes % (A) 5 %; Neutrophils # (A) 6.4 k/uL (1.3-7.7); Neutrophils % (A) 76 %; Platelet Count 237 k/uL (150-450); RBC 4.98 m/uL (4.30-5.90); RDW 13.3 % (11.5-15.5); WBC 8.5 k/uL (3.8-10.6)
[2021-08-31] MEDS: PANTOPRAZOLE 40 MG/10 ML VIAL IV SCH (10:08)
[2021-08-31] MEDS: oxyCODONE-APAP 5-325MG 1 EACH TAB PO PRN ×2 (10:08→14:23)
[2021-08-31] MEDS: HEPARIN SODIUM,PORCINE/PF 5,000 UNIT/0.5 ML SYRINGE SQ SCH ×3 (10:08→23:23)
[2021-08-31] MEDS: DOCUSATE 100 MG CAP PO SCH ×2 (10:08→21:40)
[2021-08-31 12:48] LABS: Glucose,Whole Blood 159 mg/dL (70-110)
[2021-08-31] MEDS: INSULIN ASPART (NovoLOG) 100 UNIT/ML VIAL SQ SCH ×3 (12:58→21:40)
[2021-08-31] MEDS ORDERED: BACLOFEN 10 MG TAB PO PRN (13:08)
--- NOTE | 2021-08-31 13:09 | P.CONS ---
History of Present Illness - Reason for Consult Consult date: 08/31/21 Medical management, diabetes mellitus history, status post appendectomy - History of Present Illness This is a pleasant 50-year-old male who was recently admitted under surgical center services for increased abdominal pain on the right side of the abdomen and the lower quadrant that it progressively been getting worse over the day. On admission patient's white blood count was found to be elevated at 14.5, hemoglobin was stable at 15.4, sodium was 138 with a potassium of 4.0 on current creatinine was 0.76. Lactic acid was normal at 1.4 and urinalysis was negative besides positive for glucose and ketones. Patient does have a past medical history of diabetes2 and hypertension and follows with Dr. Pete in the [facility] setting for oral diabetic agents. Patient reports he does not normally check his blood sugars too often but takes his medications as prescribed. Will obtain hemoglobin A1c and encourage the patient to follow-up with primary care provider once discharged. Patient was admitted under surgical services for appendectomy as CT showed findings suggestive of an acute appendicitis. On exam this morning patient denies any overnight issues is having some weakness due to the abdominal discomfort and does have an abdominal binder noted. Will add incentive spirometer and also continue Accu-Cheks before meals and at bedtime and add sliding scale. Encourage the patient to increase activity as tolerated and will continue to follow with surgery during hospitalization. Patient reports the passing gas although has not had a bowel movement yet and is urinating with no difficulties. Patient reports he tolerated breakfast with no reports of nausea or vomiting noted. Review Of Systems: Constitutional: No fever, no chills, no night sweats. No weight change. No weakness, fatigue or lethargy. No daytime sleepiness. EENT: No headache. No blurred vision or double vision, no loss of vision. No loss of Hearing, no ringing in the ears, no dizziness. No nasal drainage or congestion. No epistaxis. No sore throat. Lungs: No shortness of breath, cough, no sputum production. No wheezing. Cardiovascular: No chest pain, no lower extremity edema. No palpitations. No paroxysmal nocturnal dyspnea. No orthopnea. No lightheadedness or dizziness. No syncopal episodes. Abdominal: Reports some mild lower right quadrant abdominal pain. No nausea, vomiting. No diarrhea. No constipation. No bloody or tarry stools.. No loss of appetite. Genitourinary: No dysuria, increased frequency, urgency. No urinary retention. Musculoskeletal: No myalgias. No muscle weakness, no gait dysfunction, no frequent falls. No back pain. No neck pain. Integumentary: No wounds, no lesions. No rash or pruritus. No unusual bruising. No change in hair or nails. Neurologic: No aphasia. No facial droop. No change in mentation. No head injury. No headache. No paralysis. No paresthesia. Psychiatric: No depression. No anxiety. No mood swings. Endocrine: No abnormal blood sugars. No weight change. No excessive sweating or thirst. No cold intolerance. Active Medications Acetaminophen (Acetaminophen Tab 325 Mg Tab) 650 mg PO Q4HR PRN PRN Reason: Fever and/ or Pain Atorvastatin Calcium (Atorvastatin 10 Mg Tab) 10 mg PO DAILY [facility] Docusate Sodium (Docusate 100 Mg Cap) 100 mg PO BID [facility] Last Admin: 08/31/21 10:08 Dose: 100 mg Heparin Sodium (Porcine) (Heparin Sodium,Porcine/Pf 5,000 Unit/0.5 Ml Syringe) 5,000 unit SQ Q8HR [facility] Last Admin: 08/31/21 10:08 Dose: 5,000 unit Hydromorphone HCl (Hydromorphone 0.5 Mg/0.5 Ml Syringe) 0.5 mg IVP Q5M PRN PRN Reason: Phase 1 or 2 - Pain Control Stop: 08/31/21 23:00 Hydromorphone HCl (Hydromorphone 1 Mg/Ml 1 Ml Syringe) 1 mg IVP Q3HR PRN PRN Reason: Moderate to Severe Pain Lactated Ringer's (Lactated Ringers) 1,000 mls @ 20 mls/hr IV .Q24H [facility] Last Admin: 08/30/21 20:12 Dose: Not Given Insulin Aspart (Insulin Aspart (Novolog) 100 Unit/Ml Vial) 0 unit SQ [facility]; Protocol Ketorolac Tromethamine (Ketorolac 15 Mg/Ml 1 Ml Vial) 15 mg IVP Q6HR [facility] Stop: 09/01/21 18:01 Last Admin: 08/31/21 12:38 Dose: 15 mg Lidocaine HCl (Lidocaine 1% (10mg/Ml) For Iv Start) 0.1 ml INTRADERMA PER NOEL COL PRN PRN Reason: IV Start Naloxone HCl (Naloxone 0.4 Mg/Ml 1 Ml Vial) 0.2 mg IV Q2M PRN PRN Reason: Opioid Reversal Nortriptyline HCl (Nortriptyline 25 Mg Cap) 25 mg PO HS [facility] Ondansetron HCl (Ondansetron 4 Mg/2 Ml Vial) 4 mg IVP Q6HR PRN PRN Reason: Nausea And Vomiting Oxycodone/Acetaminophen (Oxycodone-Apap 5-325mg 1 Each Tab) 1 each PO Q4HR PRN PRN Reason: Pain Last Admin: 08/31/21 10:08 Dose: 1 each Pantoprazole Sodium (Pantoprazole 40 Mg/10 Ml Vial) 40 mg IV DAILY [facility] Last Admin: 08/31/21 10:08 Dose: 40 mg PHYSICAL EXAMINATION: GENERAL: The patient is alert and oriented x4, Well developed, well nourished. HEENT: Pupils are round and equally reacting to light. EOMI. no scleral icterus. No conjunctival pallor. Normocephalic, atraumatic. No pharyngeal erythema. No thyromegaly. CARDIOVASCULAR: S1 and S2 muffled PULMONARY: diminished breath sounds bilaterally with no wheezing or rhonchi noted. ABDOMEN: soft. Mildly tender on the lower right quadrant on exam. non- distended, normoactive bowel sounds. No palpable organomegaly. Abdominal binder noted MUSCULOSKELETAL: No joint swelling or deformity. EXTREMITIES: No cyanosis, clubbing, or pedal edema. NEUROLOGICAL: Gross neurological examination did not reveal any focal deficits. Diffuse weakness SKIN: No rashes. Assessment: Right lower quadrant abdominal pain with CT findings suggestive of acute appendicitis Status post appendectomy Diabetes mellitus, type II Leukocytosis, secondary to acute appendicitis, improved today Hypertension, currently mildly hypotensive and recommend to hold lisinopril for now. Patient takes low-dose 2.5 mg daily Hyperlipidemia, resume Lipitor GI prophylaxis DVT prophylaxis Full code Plan: Recommend to continue with current medications and management per surgery services. Patient is status post appendectomy with abdominal binder noted. Patient does have a past medical history of diabetes mellitus normally takes oral diabetic agents and will hold for now and continue with sliding scale and Accu-Cheks before meals and at bedtime. Patient is tolerating diet with no reports of nausea or vomiting or increased abdominal pain noted. Patient does have some abdominal discomfort and tenderness when getting up with position changes and having some difficulty getting up on his own. Encouraged the use of abdominal binder and use the call light to ask for assistance if having abdominal pain. Pain management per primary service. WBC on recheck today is 8.5 and patient is afebrile. Encourage the patient to continue with consistent carb diet and follow-up with primary care provider in the outpatient setting once discharged. Will add incentive spirometer and encourage the patient to use at least 10 times every hour while awake. Encouraged to increase activity as tolerated and patient is hopeful for possible discharge today. We will continue to follow with general surgery during hospitalization. Thank you for this consultation. The impression and plan of care has been dictated by Adina Odonnell, nurse practitioner as directed. Dr. Mark MD I have performed a history and examination and MDM of this patient, discussed the same with the dictator, and agree with the dictator's assessment and plan as written ,documented as a scribe. Based on total visit time, I have performed more than 50% of the visit. Any additional findings or plans will be noted. Past Medical History Past Medical History: Diabetes Mellitus History of Any Multi-Drug Resistant Organisms: None Reported Past Surgical History: No Surgical Hx Reported Additional Past Surgical History / Comment(s): right great and second toe surgery after injury 1990 Past Anesthesia/Blood Transfusion Reactions: No Reported Reaction Past Psychological History: No Psychological Hx Reported Smoking Status: Former smoker Past Alcohol Use History: Occasional Past Drug Use History: None Reported - Past Family History Mother Family Medical History: COPD Additional Family Medical History / Comment(s): age 86 Father Family Medical History: Congestive Heart Failure (CHF), Diabetes Mellitus, Myocardial Infarction ([place]) Additional Family Medical History / Comment(s): Medications and Allergies Home Medications Medication Instructions Recorded Confirmed Type lisinopriL [Zestril] 2.5 mg PO DAILY 12/08/20 08/30/21 History Atorvastatin [Lipitor] 10 mg PO DAILY 08/30/21 08/30/21 History Baclofen [Lioresal] 10 mg PO HS PRN 08/30/21 08/30/21 History Empagliflozin/Linagliptin 1 tab PO DAILY 08/30/21 08/30/21 History [Glyxambi 25 mg-5 mg Tablet] Glimepiride [Amaryl] 2 mg PO BID 08/30/21 08/30/21 History Meloxicam [Mobic] 7.5 mg PO BID 08/30/21 08/30/21 History Nortriptyline [Pamelor] 25 mg PO HS 08/30/21 08/30/21 History Allergies Allergy/AdvReac Type Severity Reaction Status Date / Time tramadol [From Ultram] Allergy Anaphylaxis Verified 08/30/21 15:30 Physical Exam Vitals: Vital Signs Temp Pulse Pulse Resp BP BP Pulse Ox 08/31/21 07:00 98.1 F 83 18 113/71 98 08/31/21 02:31 98.2 F 80 16 97/62 98 08/30/21 23:14 87 102/66 98 08/30/21 22:14 88 99/62 98 08/30/21 21:44 87 104/68 97 08/30/21 21:14 95 104/68 97 08/30/21 20:59 94 105/70 98 08/30/21 20:44 97 115/77 99 08/30/21 20:29 98 119/79 99 08/30/21 20:14 99 118/76 96 08/30/21 20:09 98.2 F 101 H 19 124/82 97 08/30/21 19:46 99 16 115/69 96 08/30/21 19:30 98 16 122/72 96 08/30/21 19:15 96 16 123/72 96 08/30/21 18:57 97.8 F 91 16 130/76 95 08/30/21 17:30 98.8 F 100 16 120/70 99 08/30/21 16:53 98.5 F 64 16 118/75 99 08/30/21 16:40 92 18 123/59 96 08/30/21 15:40 121/82 08/30/21 15:30 121/82 08/30/21 15:00 96 22 123/85 08/30/21 13:39 98.4 F 52 L 18 126/75 96 Intake and Output 08/30/21 08/31/21 08/31/21 22:59 06:59 14:59 Intake Total 1075 Output Total 10 Balance 1065 Intake: IV 1075 Output: Emesis 0 Estimated Blood Loss 10 Other: # Voids 1 # Bowel Movements 0 Weight 84.368 kg Results CBC & Chem 7: 08/31/21 08:46 08/30/21 14:22 Labs: Abnormal Lab Results - Last 24 Hours (Table) 08/30/21 08/30/21 08/30/21 Range/Units 14:22 14:22 14:22 WBC 14.5 H (3.8-10.6) k/uL Neutrophils # 11.8 H (1.3-7.7) k/uL Glucose 147 H (74-99) mg/dL Ur Specific [place] 1.037 H (1.001-1.035) Urine Glucose (UA) 4+ H (Negative) Urine Ketones 1+ H (Negative) Assessment and Plan Time with Patient: Greater than 30
--- NOTE | 2021-08-31 14:18 | P.PN ---
Subjective Progress Note Date: 08/31/21 CHIEF COMPLAINT: Acute appendicitis HISTORY OF PRESENT ILLNESS: Patient is status post laparoscopic appendectomy. Postop day #1. Patient complaining of incisional pain. Patient's pain does not appear to be fully controlled. He was able to tolerate lunch. No nausea or vomiting. He is having flatus. He is only ambulated in the room. Afebrile. WBC normalized to 8.5 PHYSICAL EXAM: VITAL SIGNS: Reviewed. GENERAL: Well-developed in no acute distress. HEENT: No sclera icterus. Extraocular movements grossly intact. Moist buccal mucosa. Head is atraumatic, normocephalic. ABDOMEN: Soft. Nondistended. Incision sites clean dry and intact. Tender with palpation of the incision sites and mostly on the left lower incision. NEUROLOGIC: Alert and oriented. Cranial nerves II through XII grossly intact. ASSESSMENT: 1. Acute appendicitis status post laparoscopic appendectomy PLAN: -Continue pain management -Encouraged patient to use ice at incision sites -Continue abdominal binder -Encouraged patient to ambulate -Encouraged patient to use incentive spirometer -GI prophylaxis Protonix and DVT prophylaxis subcu heparin Physician Roof Plumber note has been reviewed by physician. Signing provider agrees with the documented findings, assessment, and plan of care. Objective - Vital Signs Vital signs: Vital Signs Temp 98.1 F 08/31/21 07:00 Pulse 83 08/31/21 07:00 Resp 18 08/31/21 07:00 BP 113/71 08/31/21 07:00 Pulse Ox 98 08/31/21 07:00 FiO2 Intake & Output 08/30/21 08/31/21 08/31/21 18:59 06:59 18:59 Intake Total 1000 75 Output Total 10 0 Balance 990 75 Weight 84.368 kg Intake: IV 1000 75 Output: Emesis 0 Estimated Blood Loss 10 Other: # Voids 1 # Bowel Movements 0 - Labs CBC & Chem 7: 08/31/21 08:46 08/30/21 14:22 Labs: Abnormal Lab Results - Last 24 Hours (Table) 08/30/21 08/30/21 08/30/21 Range/Units 14:22 14:22 14:22 WBC 14.5 H (3.8-10.6) k/uL Neutrophils # 11.8 H (1.3-7.7) k/uL Glucose 147 H (74-99) mg/dL POC Glucose (mg/dL) (70-110) mg/dL Ur Specific [place] 1.037 H (1.001-1.035) Urine Glucose (UA) 4+ H (Negative) Urine Ketones 1+ H (Negative) 08/31/21 Range/Units 12:46 WBC (3.8-10.6) k/uL Neutrophils # (1.3-7.7) k/uL Glucose (74-99) mg/dL POC Glucose (mg/dL) 159 H (70-110) mg/dL Ur Specific [place] (1.001-1.035) Urine Glucose (UA) (Negative) Urine Ketones (Negative)
[2021-08-31] MEDS: LACTATED RINGERS 1,000 ML IV SCH (14:28)
[2021-08-31 17:20] LABS: Glucose,Whole Blood 149 mg/dL (70-110)
[2021-08-31] MEDS ORDERED: NORTRIPTYLINE 25 MG CAP PO SCH (21:00)
[2021-08-31 21:04] LABS: Glucose,Whole Blood 196 mg/dL (70-110)
[2021-09-01] MEDS: KETOROLAC 15 MG/ML 1 ML VIAL IVP SCH ×2 (05:58→11:30)
[2021-09-01 06:43] LABS: Glucose,Whole Blood 136 mg/dL (70-110)
[2021-09-01 07:33] VITALS: BP 123/76; PULSE 98; RESP 16; TEMP 97.9
[2021-09-01] MEDS: DOCUSATE 100 MG CAP PO SCH (08:28)
[2021-09-01] MEDS: PANTOPRAZOLE 40 MG/10 ML VIAL IV SCH (08:31)
[2021-09-01] MEDS: INSULIN ASPART (NovoLOG) 100 UNIT/ML VIAL SQ SCH ×2 (08:32→11:53)
[2021-09-01] MEDS: HEPARIN SODIUM,PORCINE/PF 5,000 UNIT/0.5 ML SYRINGE SQ SCH (08:32)
[2021-09-01] MEDS ORDERED: ATORVASTATIN 10 MG TAB PO SCH (09:00)
--- NOTE | 2021-09-01 09:34 | P.DS ---
Providers Date of admission: 08/30/21 15:23 Expected date of discharge: 09/01/21 Attending physician: Wilmer Gilmore Consults: 08/30/21 18:57 Consult Physician Routine Consulting Provider: Joann Lew Consult Reason/Comments: Medical management Do you want consulting provider notified?: Yes Primary care physician: Juan R Bernard - Discharge Diagnosis(es) (1) Acute appendicitis Patient was admitted 2 days ago with acute appendicitis. Underwent laparoscopic appendectomy. Yesterday his pain was not well-controlled. He was starting to tolerate his diet however. Today he is doing well. He would like to go home. He is afebrile. White blood cell count is normal. We'll discharge. Prescription for pain medications will be provided. Current Visit: Yes Status: Acute Plan - Discharge Summary New Discharge Prescriptions: No Action lisinopriL [Zestril] 2.5 mg PO DAILY Atorvastatin [Lipitor] 10 mg PO DAILY Glimepiride [Amaryl] 2 mg PO BID Nortriptyline [Pamelor] 25 mg PO HS Baclofen [Lioresal] 10 mg PO HS PRN PRN Reason: Muscle Spasm Empagliflozin/Linagliptin [Glyxambi 25 mg-5 mg Tablet] 1 tab PO DAILY Meloxicam [Mobic] 7.5 mg PO BID Discharge Medication List lisinopriL [Zestril] 2.5 mg PO DAILY 12/08/20 [History] Atorvastatin [Lipitor] 10 mg PO DAILY 08/30/21 [History] Baclofen [Lioresal] 10 mg PO HS PRN 08/30/21 [History] Empagliflozin/Linagliptin [Glyxambi 25 mg-5 mg Tablet] 1 tab PO DAILY 08/30/21 [History] Glimepiride [Amaryl] 2 mg PO BID 08/30/21 [History] Meloxicam [Mobic] 7.5 mg PO BID 08/30/21 [History] Nortriptyline [Pamelor] 25 mg PO HS 08/30/21 [History] Follow up Appointment(s)/Referral(s): Marco Antonio Pete MD [Primary Care Provider] - 1-2 days
--- NOTE | 2021-09-01 13:18 | P.PN ---
Subjective Progress Note Date: 09/01/21 This is a pleasant 50-year-old male who was recently admitted under surgical center services for increased abdominal pain on the right side of the abdomen and the lower quadrant that it progressively been getting worse over the day. On admission patient's white blood count was found to be elevated at 14.5, hemoglobin was stable at 15.4, sodium was 138 with a potassium of 4.0 on current creatinine was 0.76. Lactic acid was normal at 1.4 and urinalysis was negative besides positive for glucose and ketones. Patient does have a past medical history of diabetes2 and hypertension and follows with Dr. Pete in the outpatient setting for oral diabetic agents. Patient reports he does not normally check his blood sugars too often but takes his medications as prescribed. Will obtain hemoglobin A1c and encourage the patient to follow-up with primary care provider once discharged. Patient was admitted under surgical services for appendectomy as CT showed findings suggestive of an acute appendicitis. On exam this morning patient denies any overnight issues is having some weakness due to the abdominal discomfort and does have an abdominal binder noted. Will add incentive spirometer and also continue Accu-Cheks before meals and at bedtime and add sliding scale. Encourage the patient to increase activity as tolerated and will continue to follow with surgery during hospitalization. Patient reports the passing gas although has not had a bowel movement yet and is urinating with no difficulties. Patient reports he tolerated breakfast with no reports of nausea or vomiting noted. 09/01/2021 Patient evaluated today he is postoperative day #2 laparoscopic appendectomy. Today he rates pain a 3/10 in left lower quadrant which he states is significantly improved. He does have positive bowel sounds in all 4 quadrants is passing gas, no bowel movement yet. He is urinating without difficulty. No chest pain or shortness of breath noted. A1c found to be 9.0, patient is stable to discharge on home oral blood sugar medications and is educated on checking his blood sugar outpatient and discussed diet modifications. He has been afebrile, blood pressure 123/76. Patient will be discharged home today. Review of Systems Constitutional: Denied any fatigue denied any fever. Cardio vascular: denied any chest pain, palpitations Gastrointestinal: denied any nausea, vomiting, diarrhea Pulmonary: Denied any shortness of breath cough Neurologic denied any new focal deficits All inpatient medications were reviewed and appropriate changes in these medications as dictated in the interval history and assessment and plan. PHYSICAL EXAMINATION: GENERAL: The patient is alert and oriented x4, Well developed, well nourished. HEENT: Pupils are round and equally reacting to light. EOMI. no scleral icterus. No conjunctival pallor. Normocephalic, atraumatic. No pharyngeal erythema. No thyromegaly. CARDIOVASCULAR: S1 and S2 muffled PULMONARY: diminished breath sounds bilaterally with no wheezing or rhonchi noted. ABDOMEN: soft. Mildly tender on the lower right quadrant on exam. non- distended, normoactive bowel sounds. No palpable organomegaly. Abdominal binder noted MUSCULOSKELETAL: No joint swelling or deformity. EXTREMITIES: No cyanosis, clubbing, or pedal edema. NEUROLOGICAL: Gross neurological examination did not reveal any focal deficits. Diffuse weakness SKIN: No rashes. Assessment: Right lower quadrant abdominal pain with CT findings suggestive of acute appendi citis Status post appendectomy Diabetes mellitus, type II, uncontrolled Leukocytosis, secondary to acute appendicitis, improved today Hypertension, currently mildly hypotensive and recommend to hold lisinopril for now. Patient takes low-dose 2.5 mg daily Hyperlipidemia, resume Lipitor GI prophylaxis DVT prophylaxis Full code Plan: Recommend to continue with current medications and management per surgery services. Patient is status post appendectomy with abdominal binder noted. Patient does have a past medical history of diabetes mellitus normally takes oral diabetic agents and will hold for now and continue with sliding scale and Accu-Cheks before meals and at bedtime. Patient is tolerating diet with no reports of nausea or vomiting or increased abdominal pain noted. Patient does have some abdominal discomfort and tenderness when getting up with position changes and having some difficulty getting up on his own. Patient is wearing abdominal binder and states his pain is improved today. Pain management per primary service. WBC on recheck today is 8.5 and patient is afebrile. E ncourage the patient to continue with consistent carb diet and follow-up with primary care provider in the outpatient setting once discharged. Will add incentive spirometer and encourage the patient to use at least 10 times every hour while awake. Encouraged to increase activity as tolerated and patient is hopeful for possible discharge today. We will continue to follow with general surgery during hospitalization. Thank you for this consultation. The impression and plan of care has been dictated by Mary Arroyo, Nurse Practitioner as directed. Dr. Mark MD I have performed a history and physical examination and medical decision making of this patient, discussed the same with the dictator, and agree with the dictators assessment and plan as written, documented as a scribe. Based on total visit time, I have performed more than 50% of this visit. Objective - Vital Signs Vital signs: Vital Signs Temp 97.9 F 09/01/21 07:00 Pulse 98 09/01/21 07:00 Resp 16 09/01/21 08:32 BP 123/76 09/01/21 07:00 Pulse Ox 98 09/01/21 07:00 FiO2 Intake & Output 08/31/21 09/01/21 09/01/21 18:59 06:59 18:59 Intake Total 118 500 118 Balance 118 500 118 Intake: Oral 118 500 118 Other: Voiding Method Toilet Toilet # Voids 2 1 - Labs CBC & Chem 7: 08/31/21 08:46 08/30/21 14:22 Labs: Abnormal Lab Results - Last 24 Hours (Table) 08/31/21 08/31/21 08/31/21 Range/Units 12:46 17:18 19:55 POC Glucose (mg/dL) 159 H 149 H (70-110) mg/dL Hemoglobin A1c 9.0 H (0.0-6.0) % 08/31/21 09/01/21 Range/Units 21:03 06:42 POC Glucose (mg/dL) 196 H 136 H (70-110) mg/dL Hemoglobin A1c (0.0-6.0) % Microbiology - Last 24 Hours (Table) 08/30/21 16:10 Blood Culture - Preliminary Blood No Growth after 24 hours Assessment and Plan Time with Patient: Less than 30
== END 2021-09-01 12:04 | disposition home or self-care (01) ==
LOC: EC 13:39 → 6NMEDSUR 15:23
PROVIDERS: ADMIT Surgery; ATTEND Surgery
DX: K35.80 Unspecified acute appendicitis (principal); E11.65 Type 2 diabetes mellitus with hyperglycemia; I10 Essential (primary) hypertension; E78.5 Hyperlipidemia, unspecified; Z98.890 Other specified postprocedural states; Z90.49 Acquired absence of other specified parts of digestive tract; Z87.891 Personal history of nicotine dependence; Z83.3 Family history of diabetes mellitus; Z82.49 Family history of ischemic heart disease and other diseases of the circulatory system; Z82.5 Family history of asthma and other chronic lower respiratory diseases; Z79.84 Long term (current) use of oral hypoglycemic drugs; Z79.1 Long term (current) use of non-steroidal anti-inflammatories (NSAID); Z79.899 Other long term (current) drug therapy; Z88.5 Allergy status to narcotic agent
CPT/HCPCS: 96376; 96361; 96374; 99285; 36415; 88304; 80053; 82150; 83605; 83690; 85025 ×2; 81003; 87040; 83036; 74177; 44970; G0378 ×3; J2543; J2250; J0330; J2710; J2405; J3010; J1885 ×3; J2704; C9113 ×2; J1170; Q9967; J1644 ×3

== ENCOUNTER 2022-08-26 21:36 | Emergency (ER) | payer BC, OTHER ==
[2022-08-26 23:05] VITALS: RESP 18; TEMP 98.5
--- NOTE | 2022-08-27 01:53 | ED ---
Eye Problem HPI - General Chief complaint: Eye Problems Stated complaint: Lt eye blurred Time Seen by Provider: 08/27/22 01:05 Source: patient Mode of arrival: ambulatory Limitations: no limitations - History of Present Illness Initial comments: Patient is a 51-year-old male who presents to the emergency department for blurred vision left eye. It started yesterday. Patient denies injury to the eye and face. Denies recent falls. Patient states the eye feels mildly uncomfortable but not painful. He denies redness of the eye and eye tearing. He does report some floating horizontal "strings" yesterday which had not occurred today. Denies flashes. Patient has history of cataract surgery in both of his eyes. He does not wear glasses or contact lens. He also has history of diabetes mellitus states he has not taken medication currently. Despite triage note patient denies headache. Denies fever, chills, vomiting. - Related Data Home Medications Medication Instructions Recorded Confirmed lisinopriL [Zestril] 2.5 mg PO DAILY 12/08/20 08/30/21 Atorvastatin [Lipitor] 10 mg PO DAILY 08/30/21 08/30/21 Baclofen [Lioresal] 10 mg PO HS PRN 08/30/21 08/30/21 Empagliflozin/Linagliptin 1 tab PO DAILY 08/30/21 08/30/21 [Glyxambi 25 mg-5 mg Tablet] Glimepiride [Amaryl] 2 mg PO BID 08/30/21 08/30/21 Meloxicam [Mobic] 7.5 mg PO BID 08/30/21 08/30/21 Nortriptyline [Pamelor] 25 mg PO HS 08/30/21 08/30/21 Previous Rx's Medication Instructions Recorded oxyCODONE HCL [OxyIR] 5 mg PO Q6H PRN 3 Days #6 tab 09/01/21 Allergies Allergy/AdvReac Type Severity Reaction Status Date / Time tramadol [From Ultram] Allergy Anaphylaxis Verified 08/26/22 23:01 Review of Systems ROS Statement: Those systems with pertinent positive or pertinent negative responses have been documented in the HPI. ROS Other: All systems not noted in ROS Statement are negative. Past Medical History Past Medical History: Diabetes Mellitus History of Any Multi-Drug Resistant Organisms: None Reported Past Surgical History: No Surgical Hx Reported Additional Past Surgical History / Comment(s): right great and second toe surgery after injury 1990 Past Anesthesia/Blood Transfusion Reactions: No Reported Reaction Past Psychological History: No Psychological Hx Reported Smoking Status: Former smoker Past Alcohol Use History: Occasional Past Drug Use History: None Reported - Past Family History Mother Family Medical History: COPD Additional Family Medical History / Comment(s): age 86 Father Family Medical History: Congestive Heart Failure (CHF), Diabetes Mellitus, Myocardial Infarction ([place]) Additional Family Medical History / Comment(s): General Exam Limitations: no limitations General appearance: alert, in no apparent distress Head exam: Present: atraumatic, normocephalic, normal inspection Eye exam: Present: normal appearance, PERRL, EOMI. Absent: scleral icterus, conjunctival injection, periorbital swelling Respiratory exam: Present: normal lung sounds bilaterally. Absent: respiratory distress, wheezes, rales, rhonchi, stridor Cardiovascular Exam: Present: regular rate, normal rhythm, normal heart sounds. Absent: systolic murmur, diastolic murmur, rubs, gallop, clicks Neurological exam: Present: alert, oriented X3, CN II-XII intact Psychiatric exam: Present: normal affect, normal mood Skin exam: Present: warm, dry, intact, normal color. Absent: rash Course Vital Signs 08/26/22 08/27/22 23:01 02:15 Temperature 98.5 F Pulse Rate 83 76 Respiratory 18 18 Rate Blood Pressure 142/82 121/79 O2 Sat by Pulse 98 98 Oximetry Medical Decision Making - Medical Decision Making Was pt. sent in by a medical professional or institution (, PA, PAPER STACKER, urgent care, hospital, or [place] [facility] facility...) When possible be specific @ -No Did you speak to anyone other than the patient for history (EMS, parent, family, police, friend...)? What history was obtained from this source @ -No Did you review nursing and triage notes (agree or disagree)? Why? @ -[I reviewed and mostly agree. Patient does not have headache Were old charts reviewed (outside hosp., previous admission, EMS record, old EKG, old radiological studies, urgent care reports/EKG's, [place] [facility] records)? Report findings @ -No old charts were reviewed Differential Diagnosis (chest pain, altered mental status, abdominal pain women, abdominal pain men, vaginal bleeding, weakness, fever, dyspnea, syncope, headache, dizziness, GI bleed, back pain, seizure, CVA, palpatations, mental health)? @ Retinal detachment, retinal tear, vitreous detachment, vitreous hemorrhage posterior uveitis, glaucoma-this is not meant to be all-inclusive EKG interpreted by me (3pts min.). @-None X-rays interpreted by me (1pt min.). @ -None done CT interpreted by me (1pt min.). @ -None done U/S interpreted by me (1pt. min.). @ -None done What testing was considered but not performed or refused? (CT, X-rays, U/S, la bs)? Why? @ -None What meds were considered but not given or refused? Why? @ -None Did you discuss the management of the patient with other professionals (professionals i.e. , PA, PAPER STACKER, lab, RT, psych nurse, director of social media marketing, chicken raiser, teacher, recreation officer, case work aide)? Give summary @ -No Was smoking cessation discussed for >3mins.? @ -No Was critical care preformed (if so, how long)? @ -No Were there social determinants of health that impacted care today? How? (Homelessness, low income, unemployed, alcoholism, drug addiction, transportation, low edu. Level, literacy, decrease access to med. care, [facility], rehab)? @ -No Was there de-escalation of care discussed even if they declined (Discuss DNR or withdrawal of care, Hospice)? DNR status @ -No What co-morbidities impacted this encounter? (DM, HTN, Smoking, COPD, CAD, Cancer, CVA, ARF, Chemo, Hep., AIDS, mental health diagnosis, sleep apnea, morbid obesity)? @ -None Was patient admitted / discharged? Hospital course, mention meds given and route, prescriptions, significant lab abnormalities, going to OR and other pertinent info. @ -Patient presenting with blurred vision in left eye. Visual acuity is 20/70 left eye and 20/50 right eye. PEERL. There is no conjunctival injection. IOP is 12 bilaterally. I did perform ultrasound which ruled out retinal detachment. Patient in stable medical condition for discharge he is referred to off track betting manager. Discussed return parameters. Undiagnosed new problem with uncertain prognosis? @ -No Drug Therapy requiring intensive monitoring for toxicity (Heparin, Nitro, Insulin, Cardizem)? @ -No Were any procedures done? @ -Yes, ultrasound for rule out retinal detachment Diagnosis/symptom? @ -Blurred vision left eye Acute, or Chronic, or Acute on Chronic? @Acute Uncomplicated (without systemic symptoms) or Complicated (systemic symptoms)? @ -Uncomplicated Side effects of treatment? @ -No Exacerbation, Progression, or Severe Exacerbation? @ -No Poses a threat to life or bodily function? How? (Chest pain, [place], [place], pneumonia, PE, COPD, DKA, ARF, appy, cholecystitis, CVA, Diverticulitis, Homicidal, Suicidal, threat to staff... and all critical care pts) @ -No Dr. Jones is my attending Disposition Clinical Impression: Blurred vision, left eye Disposition: HOME SELF-CARE Condition: Good Instructions (If sedation given, give patient instructions): Blurred Vision (ED) Additional Instructions: Follow-up with ophthalmology in one to 2 days. Return to emergency department if you experience new, concerning, or worsening symptoms Is patient prescribed a controlled substance at d/c from ED?: No Referrals: Marco Antonio Pete MD [Primary Care Provider] - 1-2 days Cr Lou MD [STAFF PHYSICIAN] - 1-2 days
[2022-08-27 02:21] VITALS: BP 121/79; PULSE 76
== END 2022-08-27 02:32 | disposition home or self-care (01) ==
LOC: EC 21:36
DX: H53.8 Other visual disturbances (principal); E11.9 Type 2 diabetes mellitus without complications; Z87.891 Personal history of nicotine dependence; Z88.5 Allergy status to narcotic agent; Z79.84 Long term (current) use of oral hypoglycemic drugs
CPT/HCPCS: 99283

== ENCOUNTER 2023-10-20 21:19 | Emergency (ER) | payer BC ==
[2023-10-20 21:50] VITALS: RESP 18; TEMP 97.8
--- NOTE | 2023-10-20 22:24 | ED ---
ENT HPI - General Chief complaint: Dental/Oral Stated complaint: Tooth Pain/Swelling Time Seen by Provider: 10/20/23 21:51 Source: patient, RN notes reviewed, old records reviewed Mode of arrival: ambulatory Limitations: no limitations - History of Present Illness Initial comments: This is a 52-year-old male to the ER for evaluation today. This patient presents today for evaluation of dental pain left rear molar upper molar with severe pain tenderness no drainage no abscess some mild facial swelling. No fevers MD complaint: tooth pain -: hour(s) Location: tooth # Severity: severe Severity scale (1-10): 8 Quality: stabbing Consistency: constant Improves with: none Worsens with: none Context- Dental: history of dental caries Associated Symptoms: toothache - Related Data Home Medications Medication Instructions Recorded Confirmed lisinopriL [Zestril] 2.5 mg PO DAILY 12/08/20 08/30/21 Atorvastatin [Lipitor] 10 mg PO DAILY 08/30/21 08/30/21 Baclofen [Lioresal] 10 mg PO HS PRN 08/30/21 08/30/21 Empagliflozin/Linagliptin 1 tab PO DAILY 08/30/21 08/30/21 [Glyxambi 25 mg-5 mg Tablet] Glimepiride [Amaryl] 2 mg PO BID 08/30/21 08/30/21 Meloxicam [Mobic] 7.5 mg PO BID 08/30/21 08/30/21 Nortriptyline [Pamelor] 25 mg PO HS 08/30/21 08/30/21 Previous Rx's Medication Instructions Recorded oxyCODONE HCL [OxyIR] 5 mg PO Q6H PRN 3 Days #6 tab 09/01/21 Amoxic-Pot Clav 875-125Mg 1 tab PO Q12HR #20 tablet 10/20/23 [Augmentin 875-125] Allergies Allergy/AdvReac Type Severity Reaction Status Date / Time tramadol [From Ultram] Allergy Anaphylaxis Verified 10/20/23 21:46 Review of Systems ROS Statement: Those systems with pertinent positive or pertinent negative responses have been documented in the HPI. ROS Other: All systems not noted in ROS Statement are negative. Past Medical History Past Medical History: Diabetes Mellitus, Hyperlipidemia History of Any Multi-Drug Resistant Organisms: None Reported Past Surgical History: No Surgical Hx Reported Additional Past Surgical History / Comment(s): right great and second toe surgery after injury 1990 Past Anesthesia/Blood Transfusion Reactions: No Reported Reaction Past Psychological History: No Psychological Hx Reported Smoking Status: Former smoker Past Alcohol Use History: Occasional Past Drug Use History: None Reported - Past Family History Mother Family Medical History: COPD Additional Family Medical History / Comment(s): age 86 Father Family Medical History: Congestive Heart Failure (CHF), Diabetes Mellitus, Myocardial Infarction ([place]) Additional Family Medical History / Comment(s): General Exam Limitations: no limitations General appearance: alert, in no apparent distress Head exam: Present: atraumatic, normocephalic, normal inspection Eye exam: Present: normal appearance, PERRL, EOMI. Absent: scleral icterus, conjunctival injection, periorbital swelling ENT exam: Present: normal exam, mucous membranes moist Neck exam: Present: normal inspection. Absent: tenderness, meningismus, lymphadenopathy Respiratory exam: Present: normal lung sounds bilaterally. Absent: respiratory distress, wheezes, rales, rhonchi, stridor Cardiovascular Exam: Present: regular rate, normal rhythm, normal heart sounds. Absent: systolic murmur, diastolic murmur, rubs, gallop, clicks GI/Abdominal exam: Present: soft, normal bowel sounds. Absent: distended, tenderness, guarding, rebound, rigid Extremities exam: Present: normal inspection, full ROM, normal capillary refill. Absent: tenderness, pedal edema, joint swelling, calf tenderness Back exam: Present: normal inspection Neurological exam: Present: alert, oriented X3, CN II-XII intact Psychiatric exam: Present: normal affect, normal mood Skin exam: Present: warm, dry, intact, normal color. Absent: rash Course Vital Signs 10/20/23 10/20/23 21:46 22:48 Temperature 97.8 F Pulse Rate 90 92 Respiratory 18 18 Rate Blood Pressure 120/79 120/66 O2 Sat by Pulse 98 98 Oximetry - Reevaluation(s) Reevaluation #1: 10/20/23 22:42 Was reviewed Reevaluation #2: 10/20/23 22:42 Symptoms unchanged Reevaluation #3: 10/20/23 22:43 Patient informed of results and questions answered Reevaluation #4: Was pt. sent in by a medical professional or institution (, PA, AUTOMATIC MACHINE ATTENDANT, urgent care, hospital, or jail...) When possible be specific @ -no Did you speak to anyone other than the patient for history (EMS, parent, family, police, friend...)? What history was obtained from this source @ -no Did you review nursing and triage notes (agree or disagree)? Why? @ -agree Are old charts reviewed (outside hosp., previous admission, EMS record, old EKG, old radiological studies, urgent care reports/EKG's, jail records)? Report findings @ -yes Differential Diagnosis (chest pain, altered mental status, abdominal pain women, abdominal pain men, vaginal bleeding, weakness, fever, dyspnea, syncope, headache, dizziness, GI bleed, back pain, seizure, CVA, palpatations, mental health, musculoskeletal)? @ -prior EKG interpreted by me (3pts min.). @ -no X-rays interpreted by me (1pt min.). @ -no CT interpreted by me (1pt min.). @ -no U/S interpreted by me (1pt. min.). @ -no What testing was considered but not performed or refused? (CT, X-rays, U/S, labs)? Why? @ -none What meds were considered but not given or refused? Why? @ -none Did you discuss the management of the patient with other professionals (professionals i.e. , PA, AUTOMATIC MACHINE ATTENDANT, lab, RT, psych nurse, psychiatric social worker supervisor, historic clothing and costume maker, teacher, chief environmental commitment officer, telephonic case manager)? Give summary @ -no Was smoking cessation discussed for >3mins.? @ -no Was critical care preformed (if so, how long)? @ -no Were there social determinants of health that impacted care today? How? (Homelessness, low income, unemployed, alcoholism, drug addiction, transpor tation, low edu. Level, literacy, decrease access to med. care, senior care, rehab)? @ -none Was there de-escalation of care discussed even if they declined (Discuss DNR or withdrawal of care, Hospice)? DNR status @ -no What co-morbidities impacted this encounter? (DM, HTN, Smoking, COPD, CAD, Cancer, CVA, ARF, Chemo, Hep., AIDS, mental health diagnosis, sleep apnea, morbid obesity)? @ -none Was patient admitted / discharged? Hospital course, mention meds given and route, prescriptions, significant lab abnormalities, going to OR and other pertinent info. @ - 52 male here presents for dental pain dental caries dental abscess, patient will be placed on antibiotics and pain control to follow-up with the dentist in [facility] here in the ER Discharge dental pain dental caries Undiagnosed new problem with uncertain prognosis? @ -no Drug Therapy requiring intensive monitoring for toxicity (Heparin, Nitro, Insulin, Cardizem)? @ -no Were any procedures done? @ -no Diagnosis/symptom? @ - Acute, or Chronic, or Acute on Chronic? @ -Acute Uncomplicated (without systemic symptoms) or Complicated (systemic symptoms)? @ -Complicated Side effects of treatment? @ -no Exacerbation, Progression, or Severe Exacerbation? @ -exacerbation Poses a threat to life or bodily function? How? (Chest pain, [place], [place], pneumonia, PE, COPD, DKA, ARF, appy, cholecystitis, CVA, Diverticulitis, Homicidal, Suicidal, threat to staff... and all critical care pts) @ -no Medical Decision Making - Medical Decision Making 52 male here presents for dental pain dental caries dental abscess, patient will be placed on antibiotics and pain control to follow-up with the dentist in [facility] here in the ER Disposition Clinical Impression: Dental caries, Dental abscess Disposition: HOME SELF-CARE Condition: Fair Instructions (If sedation given, give patient instructions): Dental Abscess (ED), Toothache (ED) Prescriptions: Amoxic-Pot Clav 875-125Mg [Augmentin 875-125] 1 tab PO Q12HR #20 tablet Is patient prescribed a controlled substance at d/c from ED?: No Referrals: Claudio Bolton DDS [STAFF PHYSICIAN] - 1-2 days Eduin Porras DDS [STAFF PHYSICIAN] - 1-2 days Time of Disposition: 22:30
[2023-10-20] MEDS: ACET/COD 300 MG/30 MG STARTER PACK 6 TAB BTL PO STA (22:41)
[2023-10-20] MEDS: IBUPROFEN 600 MG STARTER PACK 4 TAB BTL PO STA (22:41)
[2023-10-20] MEDS: AMOXIC-POT CLAV 875-125MG 1 EACH TAB PO STA (22:42)
[2023-10-20] MEDS: dexAMETHasone 2 MG TAB PO STA (22:42)
[2023-10-20] MEDS: Acetaminophen-Codeine 300-30mg TAB PO STA (22:42)
[2023-10-20] MEDS: AMOXIC-POT CLAV 875MG STARTER PACK 2 TAB BTL PO STA (22:42)
[2023-10-20] MEDS: IBUPROFEN 800 MG TAB PO STA (22:43)
[2023-10-20] MEDS: KETOROLAC 15 MG/ML 1 ML VIAL IM STA (22:43)
[2023-10-20 22:50] VITALS: BP 120/66; PULSE 92
== END 2023-10-20 22:48 | disposition home or self-care (01) ==
LOC: EC 21:19
DX: K02.9 Dental caries, unspecified (principal); K04.7 Periapical abscess without sinus; Z88.5 Allergy status to narcotic agent; Z87.891 Personal history of nicotine dependence
CPT/HCPCS: 99283; 96372; J8540; J1885